=== PATIENT | female | born 1960 | race Caucasian/White ===

== ENCOUNTER → 2016-11-01 | Outpatient (CLI) | payer OTHER ==
[~2016-11-01] MED LIST: ASPI-110 PO; ATOR40TA16 PO; FLUT50SP EACH NARE; TRIA37.53 PO; VENTAER INH; VERA120T3 PO
[2016-11-01 09:22] LABS: BASOPHIL % 0.7 % (0.0-2.0); EOSINOPHIL # 0.2 TH/MM3 (0-0.4); EOSINOPHIL % 3.6 % (0.0-4.0); HEMATOCRIT 43.8 % (35.0-46.0); HEMO FLAGS DIFF FINAL; LYMPH % 20.9 % (9.0-44.0); LYMPHOCYTE # 1.2 TH/MM3 (1.0-4.8); MEAN CELL VOLUME 87.6 FL (80.0-100.0); MEAN CORPUSCULAR HEMOGLOBIN 30.2 PG (27.0-34.0); MEAN CORPUSCULAR HGB CONC 34.4 % (32.0-36.0); MONO % 7.5 % (0.0-8.0); NEUT % 67.3 % (16.0-70.0); PLATELET COUNT 316 TH/MM3 (150-450)
[2016-11-01 09:44] LABS: ANION GAP 10 MEQ/L (5-15); AST (GOT) 92 U/L (15-37); BICARBONATE 26.2 MEQ/L (21.0-32.0); BLOOD UREA NITROGEN 15 MG/DL (7-18); CHLORIDE 103 MEQ/L (98-107); GLOMERULAR FILTRATION RATE 63 ML/MIN (>89); GLUCOSE,FASTING 108 MG/DL (74-99); POTASSIUM 3.7 MEQ/L (3.5-5.1); SODIUM (NA) 139 MEQ/L (136-145)
[2016-11-01 09:46] LABS: ALT (GPT) 117 U/L (10-53)
[2016-11-01 09:55] LABS: ALKALINE PHOSPHATASE 117 U/L (45-117); LDL CHOLESTEROL 82 MG/DL (0-99); TOTAL BILIRUBIN ADULT 0.5 MG/DL (0.2-1.0)
[2016-11-01 18:34] LABS: HEMOGLOBIN A1b 1.8 %; HEMOGLOBIN Ao 84.1 %; HEMOGLOBIN P3 4.1 %
== END ==
LOC: CLAB 09:02
PROVIDERS: ATTEND Family Medicine
DX: R73.02 Impaired glucose tolerance (oral) (principal); I10 Essential (primary) hypertension; M19.90 Unspecified osteoarthritis, unspecified site; M89.8X9 Other specified disorders of bone, unspecified site; Z65.8 Other specified problems related to psychosocial circumstances
CPT/HCPCS: 36415; 80053; 80061; 83036; 84443; 85025

== ENCOUNTER → 2016-11-28 | Outpatient (CLI) | payer OTHER | LOC: CLAB 14:55 | PROVIDERS: ATTEND Family Medicine | DX: R74.8 Abnormal levels of other serum enzymes (principal) | CPT/HCPCS: 36415; 80074 ==

== ENCOUNTER → 2016-12-02 | Outpatient (CLI) | payer OTHER ==
[~2016-12-02] MED LIST changes: +NAPR500T PO; +PRED50 PO
--- NOTE | 2016-12-02 17:35 | RADRPT ---
EXAM DATE/TIME: 12/02/2016 09:58 [facility] COMPARISON: No previous studies available for comparison. INDICATIONS : Abnormal labs. Right upper quadrant pain. MEDICAL HISTORY : Hypercholesterolemia. Hypertension. Renal calculi. SURGICAL HISTORY : Tubal ligation. ENCOUNTER: Initial ACUITY: 1 day PAIN SCORE: 2/10 LOCATION: Bilateral upper quadrant MEASUREMENTS: LIVER: 12.8 cm length COMMON DUCT: 4 mm RIGHT KIDNEY: 10.7 x 4.9 x 4.8 cm SPLEEN: 9.1 cm length FINDINGS: LIVER: Normal echotexture without focal lesion or ductal dilatation. COMMON DUCT: No intraluminal mass or stone visualized. GALLBLADDER: Multiple tiny echogenic wall adherent foci may be small cholesterol polyps. No mobile stones. No wall thickening or pericholecystic fluid. PANCREAS: The visualized portions are within normal limits. RIGHT KIDNEY: No hydronephrosis, stone or mass. SPLEEN: No focal lesion. CONCLUSION: Tiny gallbladder polyps. Otherwise unremarkable Danny Camarillo MD on December 02, 2016 at 17:32 Board Certified Radiologist. This report was verified electronically.
== END ==
LOC: HRAD 09:16
PROVIDERS: ATTEND Family Medicine
DX: R74.8 Abnormal levels of other serum enzymes (principal)
CPT/HCPCS: 76705

== ENCOUNTER → 2017-01-09 | Outpatient (CLI) | payer OTHER ==
[~2017-01-09] MED LIST changes: -ATOR40TA16 PO
--- NOTE | 2017-01-09 11:27 | RADRPT ---
EXAM DATE/TIME: 01/09/2017 11:10 [facility] COMPARISON: No previous studies available for comparison. INDICATIONS : Low back pain for 1 month; no known injury. MEDICAL HISTORY : None. SURGICAL HISTORY : None. ENCOUNTER: Initial ACUITY: 1 month PAIN SCORE: 6/10 LOCATION: Lumbar spine. FINDINGS: There is moderate loss of disc space height at L5-S1 consistent with degenerative process. Degenerat pau changes in the facets at L4-5 and L5-S1. There is good preservation of body heights.. CONCLUSION: Degenerative changes L5-S1 as described above. Willard Sanz MD FACR on January 09, 2017 at 11:19 Board Certified Radiologist. This report was verified electronically.
== END ==
LOC: HRAD 10:15
PROVIDERS: ATTEND Family Medicine
DX: M54.5 Low back pain (principal)
CPT/HCPCS: 72110